=== PATIENT | female | born 1945 | race Caucasian/White ===

== ENCOUNTER 2019-10-19 14:57 | Outpatient (CLI) | payer MEDICARE, OTHER, SELFPAY ==
--- NOTE | 2019-10-19 15:11 | XRR_ITS ---
PROCEDURE INFORMATION: Exam: XR Right Knee Exam date and time: 10/19/2019 3:22 PM Age: 74 years old Clinical indication: Pain; Knee; Right; Additional info: Right knee pain TECHNIQUE: Imaging protocol: XR Right knee. Views: 1 or 2 views. COMPARISON: CR Knee 3 views, RIGHT* [id number] 07/28/2019 9:46 AM FINDINGS: Bones/joints: There has been a right knee replacement. No evidence for hardware failure. There is no evidence for acute fracture or malalignment. Soft tissues: There is a suprapatellar and infrapatellar effusion which are not significantly changed. XR/XR knee RT 1-2V [id number] IMPRESSION: There are no acute concerning abnormalities.
== END 2019-10-19 14:58 | disposition home or self-care (01) ==
LOC: RAD 15:07
PROVIDERS: Family Provider Electrodiagnostic Medicine; PCP Electrodiagnostic Medicine; Visit Provider Orthopaedic Surgery
DX: M25.561 Pain in right knee (principal)
CPT/HCPCS: 73560

== ENCOUNTER 2019-11-08 21:51 | Emergency (ER) | payer MEDICARE, OTHER, SELFPAY ==
[2019-11-08 21:56] VITALS: BP 166/93; PULSE 105; RESP 18; TEMP 36.6; O2SAT 95; BMI 21.4
[2019-11-08 22:26] LABS: Basophils % 0.1 %; Eosinophils # 0.1 10^3/uL (0.0-0.8); Eosinophils % 0.8 %; Hematocrit 40.3 % (37.0-47.0); Hemoglobin 12.7 g/dL (11.5-15.3); Lymphocytes # 0.9 10^3/uL (0.8-4.8); Lymphocytes % 11.9 %; Mean Corpuscular HGB Conc 31.5 g/dL (30.0-36.0); Mean Corpuscular Hemoglobin 31.3 pg (28.0-34.0); Mean Corpuscular Volume 99.3 fL (81-99); Mean Platelet Volume 9.2 fL (7.4-10.4); Monocytes # 0.2 10^3/uL (0.2-0.9); Monocytes % 2.3 %; Neutrophils # 6.6 10^3/uL (1.8-7.7); Neutrophils % 84.6 %; Nucleated Red Blood Cells % 0 %; Platelet Count 315 10^3/cmm (130-400); Red Blood Count 4.06 10^6/uL (4.1-5.3); Red Cell Distribution Width 12.4 % (12.1-15.1); White Blood Count 7.8 10^3/uL (4.0-10.0)
[2019-11-08 22:37] LABS: Alanine Aminotransferase 20 U/L (0-33); Alkaline Phosphatase 157 IU/L (35-105); Anion Gap 17.6 (5-19); Aspartate Amino Transferase 36 U/L (0-32); Blood Urea Nitrogen 19 mg/dL (8-23); Calcium 8.9 mg/dL (8.5-10.5); Carbon Dioxide 23 mmol/L (22-29); Chloride 98 mmol/L (98-107); Globulin 3.7 g/dL (1.3-4.6); Glucose 124 mg/dL (65-115); Lipase 140 U/L (13-60); Potassium 3.6 mmol/L (3.5-5.1); Sodium 135 mmol/L (136-145); Total Bilirubin 0.4 mg/dL (0.15-1.2); Total Protein 7.7 g/dL (6.6-8.7)
--- NOTE | 2019-11-08 23:16 | ED_ITS ---
Entered by Kath Stoner, acting as scribe for Jasmyn Zhou Nov 08, 2019 21:51 HPI - Nausea/Vomiting/Diarrhea General: Chief complaint: Nausea/Vomiting/Diarrhea Stated complaint: nausea/vomiting Time Seen by Provider: 11/08/19 23:10 Source: patient and family Mode of arrival: ambulatory History of Present Illness: HPI Narrative: 74 y/o female presents to the ED with complaint of diarrhea/abd pain since 0830 this AM. She has had nausea since noon and vomiting since 1999. She has not checked her temperature today but she reports having chills. Pt states the pain is sharp in nature. MD elicited complaint: nausea, vomiting, diarrhea and abdominal pain Pertinent past history: hernia Onset (ago): day(s) Associated abdominal pain: Yes Location of pain: Epigastric Pain consistency: constant Severity: mild Quality: sharp Associated symtoms: Reports fevers/chills; Denies altered mental status, change in vision, chest pain, diaphoresis, dizziness, dysuria, fatigue, headache(s), malaise, palpitations or syncope Review of Systems General: Reports: other (negative unless marked) Const: Denies: fever, body aches, fatigue, malaise or diaphoresis Eyes: Denies: change in vision or blurry vision ENMT: Denies: throat pain, painful swallowing, hoarseness, ear pain, ear discharge, Change in hearing or nasal discharge Card: Denies: chest pain, palpitations, irregular heart rhythm, syncope, pre- syncope, shortness of breath on exertion or shortness of breath when lying down Resp: Denies: shortness of breath, productive cough, non-productive cough, wheezing, coughing up blood or chest congestion : Denies: flank pain, painful urination, urinary frequency, urinary urgency, decreased urine ouput, urinary incontinence or blood in urine Musc: Denies: neck pain, back pain, extremity pain, extremity swelling, joint pain, joint swelling, joint warmth or joint stiffness Skin/Breast: Denies: rash, skin tenderness or yellow skin Neuro: Denies: headache, numbness in extremities, weakness in extremities, changes in sensation, lack of coordination, difficulty walking, dizziness, vertigo or confusion Endo: Denies: excessive thirst, tired all the time, cold intolerance, excessive sweating, flushing or hot flashes Gavin/Lymph: Denies: easy bruising, easy bleeding, petechiae or enlarged lymph nodes All/Imm: Denies: hives, throat swelling, tongue swelling, facial swelling or acute wheezing PFSH ED PFSH: Social History Smoking and tobacco status: never smoked Alcohol intake: current Alcohol intake frequency: holidays/special occasions only Household members: spouse Marital status: Current occupational status: employed Current occupation: [employer] Current gender identity: Female Physical Exam Const: COMMON NORMALS: no apparent distress, oriented x3, no limitations, healthy appearing and well nourished EXAM LIMITATIONS: no altered mental status GENERAL APPEARANCE: cooperative, well kempt and well developed ORIENTATION/CONSCIOUSNESS: Yes awake HENMT: COMMON NORMALS: normocephalic, head/scalp atraumatic, hearing grossly normal bilaterally, external ears normal, EAC's normal, external nose normal and moist oral mucous membranes HEAD & SCALP: normal to inspection, normocephalic and atraumatic FACE & SINUS: normal facial exam and face symmetric NOSE: external nose normal and nares normal EXTERNAL EAR: Yes external ears normal EXTERNAL AUDITORY CANAL: EAC's normal MOUTH: oral and palatal mucosa normal and tongue normal Eye: COMMON NORMALS: PERRL, EOMs intact bilaterally, conjunctivae normal and no scleral icterus GENERAL EYE: normal appearance of both eyes and normal light reflex CONJUNCTIVA: Yes conjunctivae normal SCLERA: sclerae normal CORNEA: Yes corneas normal PUPIL: Yes PERRL DIRECT OPHTHALMOSCOPY: Yes normal light reflex Neck/C-Spine: COMMON NORMALS: full ROM, no lymphadenopathy, supple, no meningeal signs and no JVD GENERAL: Yes normal visual inspection and Yes trachea midline CERVICAL SPINE: Yes cervical ROM normal Chest: COMMONS NORMALS: inspection of chest normal and palpation of chest normal Resp: COMMON NORMALS: normal respiratory effort, no retractions, no use of accessory muscles and clear to auscultation bilaterally EFFORT & INSPECTION: Yes able to speak in complete sentences AUSCULTATION: clear to auscultation bilaterally Cardio: COMMON NORMALS: no JVD, regular rate, regular rhythm, S1 normal heart sound, S2 normal heart sound, no gallops, no clicks, no murmurs and no rub JUGULAR VENOUS DISTENTION: no JVD RATE: regular rate RHYTHM: regular rhythm HEART SOUNDS: S1 normal and S2 normal : COMMON NORMALS: Yes no CVA tenderness BLADDER/KIDNEY EXAM: Yes no CVA tenderness Back/Pelvis: COMMON NORMALS: no CVA tenderness, thoracic and lumbar spine normal to inspection, no thoracic nor lumbar tenderness and thoraco-lumbar ROM normal Extremity: COMMON NORMALS: normal to inspection, full ROM, normal capillary refill, no joint enlargement, no clubbing, cyanosis or edema and no calf tenderness Neuro: COMMON NORMALS: oriented x3, CN's II-XII intact bilaterally, moves all extremities, no focal motor deficits and no sensory deficits noted MENINGEAL SIGNS: Yes no meningeal signs Psych: COMMON NORMALS: mental status grossly normal, thought process normal, cooperative, affect normal, speech normal and activity/motor behavior normal APPEARANCE: Yes well kempt SPEECH: Yes normal speech THOUGHT PROCESS: normal thought process Skin: COMMON NORMALS: no rashes or lesions noted, skin turgor normal, no jaundice, no petechiae and no mottling GENERAL SKIN EXAM: no rashes or lesions noted and turgor normal Course ED course: 0040 - Pt is refusing CT scan as she does not think it is necessary. She has agreed to stay for urinalysis results. Vital Signs: Vital signs: Vital Signs Temperature 97.8 F 11/08/19 21:56 Pulse Rate 98 11/09/19 03:18 Respiratory Rate 18 11/09/19 03:18 Blood Pressure 137/77 11/09/19 03:18 Pulse Oximetry 95 11/09/19 03:18 MDM - Nausea/Vomiting/Diarrhea MDM Narrative: Medical decision making narrative: Bethany is a nice 74-year-old female who comes in for diarrhea and vomiting. She had no significant tenderness on abdominal exam here. I recommended a CT scan due to her abnormal labs but she was adamant that she refused. She states that she is very anxious and cannot even have a CAT scan. I reviewed her with length is not an MRI if she is open on both ends of the scanner and I could give her medicine to relax her but she says despite this she refuses and wants to be discharged. I did talk her into staying for a urinalysis result which shows a contamination. She wants to go home and not start any medications at this time. She does agree to return should her symptoms change or worsen but at this time she is feeling better and wants to be discharged. The patient was warned but she was also welcome to return. Lab Data: Attestation: I reviewed the patient's lab results. Labs: Lab Results 11/08/19 11/08/19 11/09/19 Range/Units 22:18 22:18 02:21 WBC 7.8 (4.0-10.0) 10^3/ uL RBC 4.06 L (4.1-5.3) 10^6/u L Hgb 12.7 (11.5-15.3) g/dL Hct 40.3 (37.0-47.0) % MCV 99.3 H (81-99) fL MCH 31.3 (28.0-34.0) pg MCHC 31.5 (30.0-36.0) g/dL RDW 12.4 (12.1-15.1) % Plt Count 315 (130-400) 10^3/c mm MPV 9.2 (7.4-10.4) fL Neut % (Auto) 84.6 % Lymph % (Auto) 11.9 % [place] % (Auto) 2.3 % Eos % (Auto) 0.8 % Baso % (Auto) 0.1 % Neut # (Auto) 6.6 (1.8-7.7) 10^3/u L Lymph # (Auto) 0.9 (0.8-4.8) 10^3/u L [place] # (Auto) 0.2 (0.2-0.9) 10^3/u L Eos # (Auto) 0.1 (0.0-0.8) 10^3/u L Baso # (Auto) 0.0 (0.0-0.1) 10^3/u L Nucleated RBC % (a uto) 0 % Nucleated RBCs # 0.0 /100WBC Sodium 135 L (136-145) mmol/L Potassium 3.6 (3.5-5.1) mmol/L Chloride 98 (98-107) mmol/L Carbon Dioxide 23 (22-29) mmol/L Anion Gap 17.6 (5-19) BUN 19 (8-23) mg/dL Creatinine 0.9 (0.5-0.9) mg/dL Glucose 124 H (65-115) mg/dL Calcium 8.9 (8.5-10.5) mg/dL Total Bilirubin 0.4 (0.15-1.2) mg/dL AST 36 H (0-32) U/L ALT 20 (0-33) U/L Alkaline Phosphata se 157 H (35-105) IU/L Total Protein 7.7 (6.6-8.7) g/dL Albumin 4.0 (3.5-5.2) g/dL Globulin 3.7 (1.3-4.6) g/dL Lipase 140 H (13-60) U/L Urine Color Yellow (Yellow) Urine Appearance Hazy A (CLEAR) Urine pH 5 (5-7) Ur Specific Gravit y 1.020 (1.005-1.030) Urine Protein Neg (Negative) Urine Glucose (UA) Norm (Normal) Urine Ketones Negative (Negative) Urine Occult Blood Neg (Negative) Urine Nitrate Negative (Negative) Urine Bilirubin Neg (NEGATIVE) Urine Urobilinogen Norm (Negative) mg/dL Ur Leukocyte Jennifer ase Negative (Negative) Urine RBC 0-4 H (0-2) /hpf Urine WBC None (0-5) /hpf Ur Squamous Epith Cells 10-15 H (0-5) Urine Bacteria 1+ H (NONE) Discharge Plan Discharge Patient Disposition: Home, Self-Care Clinical Impression: Gastroenteritis Condition: Stable Prescriptions: New Zofran 4 mg tablet 4 mg PO DAILY PRN (Reason: nausea and vomiting) 5 Days RF: 0 No Action Breo Ellipta 200-25 mcg/dose blister with device 1 inh INHALATION DAILY RF: 0 estradiol PO DAILY RF: 0 feverfew 100 mg capsule PO DAILY RF: 0 aspirin [Adult Low Dose Aspirin] 81 mg tablet,delayed release (DR/EC) 81 mg PO DAILY RF: 0 Tirosint 75 mcg capsule 75 mcg PO DAILY RF: 0 albuterol sulfate 2.5 mg /3 mL (0.083 %) solution for nebulization 2.5 mg INHALATION Q4H PRNRF: 0 atorvastatin 20 mg tablet 10 mg PO DAILY RF: 0 omeprazole 40 mg Capsule,Delayed Release(Dr/Ec) 40 mg PO DAILY RF: 0 losartan-hydrochlorothiazide 100-25 mg Tablet 1 tab PO DAILY RF: 0 alprazolam 0.25 mg Tablet 0.25 mg PO TID PRN (Reason: Anxiety) RF: 0 Discharge Orders: Discharge Order (Routine); Ordered 11/09/19 Ordered By: Jasmyn Zhou Referrals: Jaison Guan DO [Primary Care Provider] - 1-3 days Discharge Diet: Advance as tolerated Discharge Activity: Increase activity as tolerated Activity Restrictions/Additional Instructions: Please return to the ER immediately for any of the signs or symptoms listed on your discharge instruction sheets, worsening/changing of your symptoms, you are not getting better as quickly as expected, or for ANY other cause or concerns. You have declined a CT scan to evaluate for your abnormal laboratory values. If you change your mind, your symptoms change or worsen you are more than welcome to return to the ER for recheck. Be certain to follow-up with Dr. Guan for recheck of your abnormal labs. Discharge Date/Time: 11/09/19 03:22 Coding Level of Care Code ED [employer] Lead for Chg Fwd Exam Comprehensive The documentation recorded by the lindaibeHerbie Ashley, accurately reflects the service I personally performed and the decisions made by , Jasmyn Zhou Nov 08, 2019 21:51
[2019-11-08] MEDS: ondansetron 2 mg/ML SDV 2 mL 4 MG IVP (23:19)
[2019-11-09] MEDS: sodium chloride 0.9% 1,000 ML 999 ML IV (01:12)
[2019-11-09 01:15] VITALS: BP 139/73; PULSE 80; RESP 16; O2SAT 96
[2019-11-09 02:48] LABS: Add Urine Culture? No; Bacteria Urine 1+; Bilirubin Urine Neg (NEGATIVE); Blood Urine Neg (Negative); Glucose Urine UA Norm (Normal); Ketones Urine Negative (Negative); Leukocyte Esterase Urine Negative (Negative); Nitrate Urine Negative (Negative); Protein Urine Neg (Negative); RBC Urine 0-4 /hpf (0-2); Urine Appearance Hazy (CLEAR); Urine Color Yellow (Yellow); Urobilinogen Urine Norm (Negative); pH Urine 5 (5-7)
[2019-11-09 03:18] VITALS: BP 137/77; PULSE 98; RESP 18; O2SAT 95
== END 2019-11-09 03:22 | disposition home or self-care (01) ==
PROVIDERS: Emergency Provider Emergency Medicine; Family Provider Electrodiagnostic Medicine; PCP Electrodiagnostic Medicine
DX: K52.9 Noninfective gastroenteritis and colitis, unspecified (principal)
CPT/HCPCS: 36415; 80053; 81001; 83690; 85025; 96361; 96374; 96375; 99283; J2405; J7030

== ENCOUNTER 2021-01-21 10:23 | Outpatient (CLI) | payer MEDICARE, OTHER, SELFPAY ==
--- NOTE | 2021-01-21 10:26 | MM_ITS ---
WS: [id number] BILATERAL SCREENING DIGITAL MAMMOGRAM WITH CAD HISTORY: SCREENING COMPARISON: 06/14/2012, 09/30/2010 and 10/08/2010 Bilateral CC and MLO views submitted. Computer aided detection analyzed. Breast composition: There are scattered areas of fibroglandular density. No suspicious masses, microc alcifications or architectural distortion. Asymmetries and calcifications are stable. MM/[place] [id number] IMPRESSION: BI-RADS: 2-Benign FOLLOW UP: 1 Year Follow-up
== END 2021-01-21 10:24 | disposition home or self-care (01) ==
LOC: RADSHAW 10:25
PROVIDERS: PCP Electrodiagnostic Medicine; Visit Provider Electrodiagnostic Medicine
DX: Z12.31 Encounter for screening mammogram for malignant neoplasm of breast (principal)
CPT/HCPCS: 77067

== ENCOUNTER 2021-01-28 14:46 | Outpatient (CLI) | payer MEDICARE, OTHER, SELFPAY ==
--- NOTE | 2021-01-28 15:00 | US_ITS ---
WS: [id number] ULTRASOUND SOFT TISSUES LEFT groin HISTORY: R19.09 - Other intra-abdominal and pelvic swelling, mass ... COMPARISON: Prior CT 07/25/2014. TECHNIQUE: 2-D and color Doppler imaging is submitted. There is an elongated tubular structure extending along the LEFT groin through the inguinal region. D iameter is 1.0 cm. There is mild central increased vascularity. No ischemic changes and there is no i ncrease fluid. No peristalsis was identified. This does not have the typical configuration of a lymph node due to its echogenicity and size. This could represent a nondilated loop of small bowel. US/US soft tissue/extremity [id number] IMPRESSION: 1. Elongated tubular structure at the LEFT groin. No edema or peristalsis. Rec ommend follow-up CT evaluation to exclude LEFT inguinal hernia. At this time th ere is no obstruction or ischemia. 2. No adenopathy.
== END 2021-01-28 14:47 | disposition home or self-care (01) ==
LOC: RAD 14:53
PROVIDERS: PCP Electrodiagnostic Medicine; Visit Provider Obstetrics & Gynecology
DX: R19.09 Other intra-abdominal and pelvic swelling, mass and lump (principal)
CPT/HCPCS: 76882

== ENCOUNTER → 2022-05-12 15:49 | Outpatient (BNVA) | payer MEDICARE, OTHER, SELFPAY | PROVIDERS: PCP Electrodiagnostic Medicine; Visit Provider Internal Medicine | DX: I25.10 Atherosclerotic heart disease of native coronary artery without angina pectoris (principal); I73.9 Peripheral vascular disease, unspecified; E78.5 Hyperlipidemia, unspecified; I10 Essential (primary) hypertension; R06.02 Shortness of breath; Z87.891 Personal history of nicotine dependence | CPT/HCPCS: 99214 ==

== ENCOUNTER 2022-10-16 12:00 | Outpatient (CLI) | payer MEDICARE, OTHER, SELFPAY ==
--- NOTE | 2022-10-16 12:09 | USCV_ITS ---
Bethany Hinton Age: 77 Gender: F : 1945 Exam Date: 10/16/2022 12:29 Ordering Phys: Jaison Guan DO Technologist: Juan Woodard Exam Location: [facility] [place]_ Indication: left leg swelling PROCEDURES: Venous duplex imaging was performed in only the left lower extremity. The following venous structures were evaluated: common femoral vein, profunda vein, proximal portion of the greater saphenous vein, superficial femoral vein, and the popliteal vein. In addition, the posterior tibial and peroneal trunk were evaluated. Serial compression, augmentation maneuvers, and spectral Doppler flow evaluation were performed. FINDINGS: Normal 2-D Doppler and augmentation and compressibility throughout the lower extremity venous structures. Additional imaging through the proximal calf veins also reveals no thrombus. Limited evaluation of the greater saphenous vein is patent with no thrombus.. CONCLUSIONS No evidence of left lower extremity DVT. Sonny Billingsley MD (Electronically Signed) Final Date: 16 October 2022 17:16 S
== END 2022-10-16 12:01 | disposition home or self-care (01) ==
LOC: RAD 12:03
PROVIDERS: PCP Electrodiagnostic Medicine; Visit Provider Electrodiagnostic Medicine
DX: M79.89 Other specified soft tissue disorders (principal)
CPT/HCPCS: 93971

== ENCOUNTER → 2022-11-26 12:50 | Outpatient (BNVA) | payer MEDICARE, OTHER, SELFPAY | PROVIDERS: PCP Electrodiagnostic Medicine; Visit Provider Internal Medicine Cardiovascular Disease | DX: I25.10 Atherosclerotic heart disease of native coronary artery without angina pectoris (principal); I10 Essential (primary) hypertension; E78.5 Hyperlipidemia, unspecified; I73.9 Peripheral vascular disease, unspecified; J44.9 Chronic obstructive pulmonary disease, unspecified; Z95.820 Peripheral vascular angioplasty status with implants and grafts; R60.0 Localized edema; Z87.891 Personal history of nicotine dependence; I25.2 Old myocardial infarction; Z79.82 Long term (current) use of aspirin | CPT/HCPCS: 99213 ==

== ENCOUNTER 2022-11-27 11:18 | Outpatient (CLI) | payer MEDICARE, OTHER, SELFPAY ==
--- NOTE | 2022-11-27 | USCV_ITS ---
Bethany Hinton Age: 77 Gender: F : 1945 Exam Date: 11/27/2022 12:11 Ordering Phys: Jeremy Pierre M.D ([email or web address]) Technologist: ZOILA [place] [facility] [place]ication: ACUTE HEART FAILURE BP: 160 / 60 HR: 77 Rhythm: Sinus Technical Quality: Adequate MEASUREMENTS (Male / Female) Normal Values 2D ECHO LVOT Diameter 2.0 cm LV Ejection Fraction MOD 2C 58.3 % LV Ejection Fraction 2C AL 58.6 % LA Diameter 2.0 cm LA Width 2.7 cm LA Height 3.3 cm RA Width 2.0 cm RA Height 3.8 cm Aorta at Sinotubular Diameter 2.0 cm IVC Diameter 1.1 cm M-MODE Aortic Annulus Diameter 2.4 cm LA Ao Ratio MM 0.6 DOPPLER AV Peak Velocity 109.0 cm/s LVOT Peak Velocity 81.3 cm/s AV Area Cont Eq vti 2.7 cm squared AV Area Cont Eq pk 2.3 cm squared MV Peak Velocity 97.0 cm/s MV Area PHT 3.0 cm squared Mitral E to A Ratio 0.8 MV E' Velocity 35.5 cm/s Mitral E to MV E' Ratio 5.1 Mitral E to LV E' Lateral Ratio 4.8 Mitral E to LV E' Septal Ratio 5.3 TR Peak Velocity 263.0 cm/s TR Peak Gradient 27.7 mmHg TV Peak E Velocity 45.0 cm/s Right Atrial Pressure 3.0 mmHg Pulmonary Artery Systolic Pressu 30.7 mmHg FINDINGS Left Ventricle Normal left ventricular size, systolic function and wall thickness, with no regional wall motion abnormalities. Grade I/IV diastolic dysfunction (abnormal relaxation filling pattern), normal to mildly elevated filling pressures. Left ventricular ejection fraction is estimated at 60 %. Right Ventricle Normal right ventricular size and systolic function. Normal right ventricular systolic pressure. Right Atrium The right atrium is normal in size. Left Atrium The left atrium is normal in size. Mitral Valve Structurally normal mitral valve. Trace mitral valve regurgitation. Aortic Valve Structurally normal aortic valve without significant sclerosis or stenosis. There is no aortic regurgitation. Tricuspid Valve Structurally normal tricuspid valve. Trace tricuspid valve regurgitation. Pulmonic Valve Pulmonic valve not well visualized. Pericardium Normal pericardium without effusion. Aorta Normal ascending aorta dimension. IVC The inferior vena cava appears normal. CONCLUSIONS Normal left ventricular size, systolic function and wall thickness, with no regional wall motion abnormalities. Grade I/IV diastolic dysfunction (abnormal relaxation filling pattern), normal to mildly elevated filling pressures. Left ventricular ejection fraction is estimated at 60 %. Structurally normal mitral valve. Trace mitral valve regurgitation. There are no prior echocardiogram studies to compare. Dr. Cole Grace MD (Electronically Signed) Final Date: 27 November 2022 18:42 S
== END 2022-11-27 11:19 | disposition home or self-care (01) ==
PROVIDERS: PCP Electrodiagnostic Medicine; Visit Provider Internal Medicine
DX: I50.9 Heart failure, unspecified (principal); I34.0 Nonrheumatic mitral (valve) insufficiency
CPT/HCPCS: 93306

== ENCOUNTER → 2023-01-12 13:14 | Outpatient (BNVA) | payer MEDICARE, OTHER, SELFPAY | PROVIDERS: PCP Electrodiagnostic Medicine; Visit Provider Internal Medicine Cardiovascular Disease | DX: I10 Essential (primary) hypertension (principal); E78.5 Hyperlipidemia, unspecified; I73.9 Peripheral vascular disease, unspecified; J44.9 Chronic obstructive pulmonary disease, unspecified; I25.10 Atherosclerotic heart disease of native coronary artery without angina pectoris; Z95.820 Peripheral vascular angioplasty status with implants and grafts; I25.2 Old myocardial infarction; Z87.891 Personal history of nicotine dependence; Z79.82 Long term (current) use of aspirin | CPT/HCPCS: 99213 ==

== ENCOUNTER → 2023-04-13 14:38 | Outpatient (BNVA) | payer MEDICARE, OTHER, SELFPAY | PROVIDERS: PCP Electrodiagnostic Medicine; Visit Provider Dermatology | DX: L40.0 Psoriasis vulgaris (principal); L57.0 Actinic keratosis; S60.031A Contusion of right middle finger without damage to nail, initial encounter; X58.XXXA Exposure to other specified factors, initial encounter; L81.4 Other melanin hyperpigmentation; L30.4 Erythema intertrigo | CPT/HCPCS: 17000; 99214 ==

== ENCOUNTER → 2023-07-02 11:40 | Outpatient (BNVA) | payer MEDICARE, OTHER, SELFPAY | PROVIDERS: PCP Electrodiagnostic Medicine; Visit Provider Internal Medicine Cardiovascular Disease | DX: R60.0 Localized edema (principal); I10 Essential (primary) hypertension; E78.5 Hyperlipidemia, unspecified; I73.9 Peripheral vascular disease, unspecified; J44.9 Chronic obstructive pulmonary disease, unspecified; Z95.820 Peripheral vascular angioplasty status with implants and grafts; I25.10 Atherosclerotic heart disease of native coronary artery without angina pectoris; I25.2 Old myocardial infarction; Z87.891 Personal history of nicotine dependence | CPT/HCPCS: 99213 ==

== ENCOUNTER → 2024-01-14 11:46 | Outpatient (BNVA) | payer MEDICARE, OTHER, SELFPAY | PROVIDERS: PCP Electrodiagnostic Medicine; Visit Provider Internal Medicine Cardiovascular Disease | DX: I25.10 Atherosclerotic heart disease of native coronary artery without angina pectoris (principal); Z95.820 Peripheral vascular angioplasty status with implants and grafts; I73.9 Peripheral vascular disease, unspecified; E78.5 Hyperlipidemia, unspecified; I10 Essential (primary) hypertension; J44.9 Chronic obstructive pulmonary disease, unspecified; I25.2 Old myocardial infarction; Z87.891 Personal history of nicotine dependence | CPT/HCPCS: 99213 ==

== ENCOUNTER → 2024-04-18 10:14 | Outpatient (BNVA) | payer MEDICARE, OTHER, SELFPAY | PROVIDERS: PCP Electrodiagnostic Medicine; Visit Provider Nurse Practitioner Family | DX: L21.8 Other seborrheic dermatitis (principal); L40.0 Psoriasis vulgaris; L60.1 Onycholysis; D18.01 Hemangioma of skin and subcutaneous tissue; L81.4 Other melanin hyperpigmentation | CPT/HCPCS: 99214 ==

== ENCOUNTER 2024-07-04 07:45 | Outpatient (CLI) | payer MEDICARE, OTHER, SELFPAY ==
--- NOTE | 2024-07-04 07:50 | CT_ITS ---
WS: [id number] LDCT LUNG CANCER SCREENING HISTORY: HISTORY OF [place] USE TECHNIQUE: Axial imaging performed from the apices to 1 cm below the costophrenic angles. Coronal and sagittal reformats are submitted with axial MIP series. All CT scans at [facility] use at least one of these dose optimization techniques: automated exposure control; mA and/or kV adjustment per patient size (includes targeted exams where dose is matched to clinical indication); or iterativ e reconstruction. DLP: 48.40 mGy.cm DIvol: Mean CTDIvol: 1.00 (mGy) COMPARISON: 10/03/2015 Diagnostic quality: Satisfactory Lungs: Marked pulmonary hyperexpansion. Biapical pleural thickening and fibrosis. Bilateral pleural t hickening and scarring. There are a few subpleural nodules and pleural tags bilaterally. Scattered gr anulomata. No new mass. Heart: Normal size heart with no pericardial effusion.. Other findings: Moderate atherosclerosis aorta. Normal size pulmonary artery. Bilateral hilar calcifi cations. Lymph nodes would be difficult to exclude due to the lack of contrast. Hepatic and splenic g ranulomata. No adrenal mass. Increase in thoracic kyphosis with spondylosis. CT/CT lung screening [id number] IMPRESSION: LUNG-RADS: 2-Benign Appearance or Behavior FOLLOW UP: 12 Month: Continue annual screening with LDCT OTHER FINDINGS (S MODIFIER): None.
== END 2024-07-04 07:46 | disposition home or self-care (01) ==
LOC: RAD 07:45
PROVIDERS: PCP Electrodiagnostic Medicine; Visit Provider Electrodiagnostic Medicine
DX: Z12.2 Encounter for screening for malignant neoplasm of respiratory organs (principal); Z87.891 Personal history of nicotine dependence; I27.20 Pulmonary hypertension, unspecified; J84.10 Pulmonary fibrosis, unspecified; I70.0 Atherosclerosis of aorta; D73.89 Other diseases of spleen; K75.3 Granulomatous hepatitis, not elsewhere classified; M40.204 Unspecified kyphosis, thoracic region
CPT/HCPCS: 71271

== ENCOUNTER 2024-07-06 11:01 | Outpatient (CLI) | payer MEDICARE, OTHER, SELFPAY ==
[2024-07-06 11:20] VITALS: PULSE 73; RESP 18; O2SAT 97
[2024-07-06] MEDS: albuterol 2.5 mg/3 mL Neb INHALATION (11:20)
[2024-07-06 11:24] VITALS: PULSE 78
== END 2024-07-06 11:02 | disposition home or self-care (01) ==
PROVIDERS: PCP Electrodiagnostic Medicine; Visit Provider Electrodiagnostic Medicine
DX: J44.9 Chronic obstructive pulmonary disease, unspecified (principal); R94.2 Abnormal results of pulmonary function studies
CPT/HCPCS: 94060; 94729

== ENCOUNTER → 2024-07-18 09:45 | Outpatient (BNVA) | payer MEDICARE, OTHER, SELFPAY | PROVIDERS: PCP Electrodiagnostic Medicine; Visit Provider Nurse Practitioner Family | DX: I25.10 Atherosclerotic heart disease of native coronary artery without angina pectoris (principal); I73.9 Peripheral vascular disease, unspecified; I10 Essential (primary) hypertension; E78.5 Hyperlipidemia, unspecified; J44.9 Chronic obstructive pulmonary disease, unspecified; Z87.891 Personal history of nicotine dependence | CPT/HCPCS: 99214 ==

== ENCOUNTER → 2024-10-17 13:37 | Outpatient (BNVA) | payer MEDICARE, OTHER, SELFPAY | PROVIDERS: PCP Electrodiagnostic Medicine; Visit Provider Nurse Practitioner Family | DX: L21.8 Other seborrheic dermatitis (principal); L60.1 Onycholysis; L40.0 Psoriasis vulgaris; D18.01 Hemangioma of skin and subcutaneous tissue; L81.4 Other melanin hyperpigmentation; L91.8 Other hypertrophic disorders of the skin; L82.0 Inflamed seborrheic keratosis; L53.8 Other specified erythematous conditions; L29.89 Other pruritus | CPT/HCPCS: 17110; 99214 ==

== ENCOUNTER 2024-11-26 22:57 | Emergency (ER) | payer MEDICARE, OTHER, SELFPAY ==
[2024-11-26 23:01] VITALS: BP 159/75; PULSE 90; RESP 16; TEMP 36.7; O2SAT 96; BMI 23.1
[2024-11-26 23:09] VITALS: PULSE 77; RESP 16; O2SAT 96
--- NOTE | 2024-11-26 23:23 | XRR_ITS ---
PROCEDURE INFORMATION: Exam: XR Right Hip Exam date and time: 11/26/2024 11:34 PM Age: 79 years old Clinical indication: Right hip; RT hip pain after twisting injury TECHNIQUE: Imaging protocol: Radiologic exam of the right hip. Views: 1 view hip with pelvis when performed. COMPARISON: No relevant prior studies available. FINDINGS: Bones/joints: No identified fracture or dislocation. 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 Sacral arcuate lines intact. Mild degenerative change of the SI joints and pubic symphysis without diastasis. Soft tissues: See Bones/joints finding. XR/XR hip RT 2-3V wo/w pel* [id number] IMPRESSION: No identified fracture or dislocation.
--- NOTE | 2024-11-26 23:42 | W.ED.EXTPRO ---
HPI - Extremity Problem General: Chief complaint: Extremity Injury, Lower Stated complaint: Twisted R hip really bad Time Seen by Provider: 11/26/24 23:12 History of Present Illness: 79-year-old female who planted and turned on her hip at home earlier in the evening. She felt a pop. She had instant pain. Now she has significant pain putting any weight on the hip, or twisting the hip. She has no prior history of hip surgery or problems. No fever. No other complaints. Related Data Home Medications ?Medication ?Instructions ?Recorded ?Confirmed albuterol sulfate 2.5 mg/3 mL 2.5 mg inhalation Q4H PRN 10/24/19 07/18/24 (0.083 %) solution for nebulization aspirin 81 mg tablet,delayed 81 mg PO DAILY 10/24/19 07/18/24 release (Adult Low Dose Aspirin) feverfew 100 mg capsule mg PO DAILY 10/24/19 07/18/24 losartan 100 1 tab PO DAILY 11/08/19 07/18/24 mg-hydrochlorothiazide 25 mg tablet omeprazole 40 mg capsule,delayed 40 mg PO DAILY 11/08/19 07/18/24 release atorvastatin 20 mg tablet 20 mg PO DAILY 01/23/21 07/18/24 cholecalciferol (vitamin D3) 1,250 50,000 unit PO .twice weekly 01/23/21 07/18/24 mcg (50,000 unit) capsule ketoconazole 2 % shampoo 1 applic topical .2 x weekly PRN 11/24/22 07/18/24 ketoconazole 2 % topical cream 1 applic topical BID PRN 11/24/22 07/18/24 melatonin 3 mg tablet (Melatin) 3 mg PO DAILY PRN sleep 11/24/22 07/18/24 Hot Flash PO TID 02/04/23 07/18/24 naproxen sodium 220 mg tablet 220 mg PO Q12H PRN 07/02/23 07/18/24 (Aleve) amoxicillin 875 mg-potassium 1 tab PO BID 01/14/24 07/18/24 clavulanate 125 mg tablet levothyroxine 75 mcg capsule 50 mcg PO DAILY 01/14/24 07/18/24 (Tirosint) budesonide 160 mcg-glycopyr 9 2 inh inhalation BID 07/18/24 07/18/24 mcg-formot 4.8 mcg/actuation HFA inhaler (Breztri Aerosphere) Previous Rx's ?Medication ?Instructions ?Recorded oxybutynin chloride 10 mg 10 mg PO DAILY #30 tabs 03/16/23 tablet,extended release 24 hr hydrocodone 5 mg-acetaminophen 325 1 tab PO Q8H PRN pain #7 tabs 11/27/24 mg tablet Allergies Allergy/AdvReac Type Severity Reaction Status Date / Time acetaminophen (From Percocet) Allergy Severe ALGY-Redness Verified 07/18/24 09:54 of Skin oxycodone (From Percocet) Allergy Severe ALGY-Redness Verified 07/18/24 09:54 of Skin amlodipine Allergy Unknown Unknown Verified 07/18/24 09:54 benazepril Allergy Unknown Unknown Verified 07/18/24 09:54 loratadine Allergy Unknown Unknown Verified 07/18/24 09:54 prednisone Allergy Unknown Unknown Verified 07/18/24 09:54 loracarbef (From Lorabid) Allergy Unknown Verified 07/18/24 09:54 PFSH ED PFSH: Medical History Cataract Lower extremity edema GERD (gastroesophageal reflux disease) Vulvovaginal candidiasis Tobacco abuse Dyslipidemia Hypothyroidism PAD (peripheral artery disease) COPD (chronic obstructive pulmonary disease) Myocardial infarction ASHD (arteriosclerotic heart disease) Surgical History S/P hysterectomy S/P bladder repair S/P cholecystectomy S/P hernia repair Status post tubal ligation S/P lumpectomy of breast S/P knee replacement RIGHT S/P angioplasty with stent Family History Father CAD (coronary artery disease) Myocardial infarction Grandfather CAD (coronary artery disease) PATERNAL Myocardial infarction Grandmother CAD (coronary artery disease) PATERNAL Myocardial infarction Cancer Maternal--gallbladder cancer Brother Diabetes Denies family history of Ovarian cyst Hyperlipidemia Chronic kidney disease (CKD) Anesthesia complication Hypertension Thyroid disease Social History Smoking and tobacco/nicotine status: former use of tobacco/nicotine Alcohol intake: current Alcohol intake frequency: holidays/special occasions only Substance/Drug Use: never Household members: spouse Marital status: Current occupational status: employed Current occupation: OPERATIONAL TRAINER Current gender identity: Female Physical Exam Const: COMMON NORMALS: no acute distress GENERAL APPEARANCE: cooperative; not ill appearing and not frail appearing HENMT: COMMON NORMALS: normocephalic, atraumatic and Normal external nose present HEAD & SCALP: normocephalic and atraumatic FACE & SINUS: normal facial exam and face symmetric NOSE: Normal external nose present Eye: COMMON NORMALS: Equal, round and reactive pupils present and EOMs intact bilaterally PUPIL: Yes Equal, round and reactive pupils present Neck/C-Spine: GENERAL: Yes trachea midline Chest: CHEST: Yes Symmetrical chest wall rise Resp: COMMON NORMALS: normal respiratory effort, No retractions, No use of accessory muscles and clear to auscultation bilaterally AUSCULTATION: clear to auscultation bilaterally Cardio: COMMON NORMALS: regular rate and regular rhythm RATE: regular rate RHYTHM: regular rhythm Extremity: COMMON NORMALS: no pedal edema NARRATIVE EXTREMITY EXAM: Exam of the right lower extremity reveals trochanteric hip tenderness on the right. There is minimal groin tenderness. Minimal posterior tenderness. No lumbar spine tenderness. There is no deformity of the hip or lower extremity. Logroll test is negative. There is pain with more significant range of motion pulses and sensation are intact distally. Neuro: GAYLA COMA SCALE: document GCS findings [place] coma scale eye opening: Spontaneous Gayla coma scale verbal response: Orientated Gayla coma scale motor response: Obey commands [place] coma scale total score: 15 SENSORY EXAM: Yes extremities (intact) Psych: COMMON NORMALS: speech normal SPEECH: Yes normal speech Course Vital Signs: Vital signs: Vital Signs Temperature 98.0 F 11/26/24 23:01 Pulse Rate 74 11/27/24 01:21 Respiratory Rate 16 11/26/24 23:09 Blood Pressure 149/93 11/27/24 01:21 Pulse Oximetry 96 11/27/24 01:21 Oxygen Delivery Me thod Room Air 11/26/24 23:09 MDM - Extremity (Nontraumatic) Medical Decision Making X-rays reveal no fracture or dislocation. She will be allowed discharge home Lab Data Radiology Impressions Hip/Pelvis X-Ray 11/26/24 23:23 IMPRESSION: No identified fracture or dislocation. All radiology interpretation(s) finalized by discharge Discharge Plan Discharge Patient Disposition: Home Clinical Impression: Sprain of right hip Condition: Stable Prescriptions: New hydrocodone-acetaminophen 5-325 mg tablet 1 tab PO Q8H PRN (Reason: pain) Qty: 7 0RF No Action cholecalciferol (vitamin D3) 1,250 mcg (50,000 unit) capsule 50,000 unit PO .twice weekly feverfew 100 mg capsule PO DAILY aspirin [Adult Low Dose Aspirin] 81 mg tablet,delayed release (DR/EC) 81 mg PO DAILY albuterol sulfate 2.5 mg /3 mL (0.083 %) solution for nebulization 2.5 mg INHALATION Q4H PRN atorvastatin 20 mg tablet 20 mg PO DAILY Tirosint 75 mcg capsule 50 mcg PO DAILY melatonin [Melatin] 3 mg tablet 3 mg PO DAILY PRN (Reason: sleep) ketoconazole 2 % shampoo 1 applic topical .2 x weekly PRN Rx Instructions: Lather into scalp 2 times weekly. Allow to sit on scalp for 5 minutes before rinsing. ketoconazole 2 % cream 1 applic topical BID PRN Rx Instructions: Apply twice daily to backside x 4 wks then prn. Apply to face daily prn for itching/scaling Hot Flash PO TID naproxen sodium [Aleve] 220 mg tablet 220 mg PO Q12H PRN amoxicillin-pot clavulanate 875-125 mg tablet 1 tab PO BID Breztri Aerosphere 160-9-4.8 mcg/actuation HFA aerosol inhaler 2 inh inhalation BID oxybutynin chloride 10 mg tablet extended release 24hr 10 mg PO DAILY Qty: 30 6RF omeprazole 40 mg Capsule,Delayed Release(Dr/Ec) 40 mg PO DAILY losartan-hydrochlorothiazide 100-25 mg Tablet 1 tab PO DAILY Discharge Orders: Discharge ED (Routine); Ordered 11/27/24 Ordered By: Khoi Laughlin Referrals: Jaison Guan DO [Primary Care Provider] - 1-3 days Patient Instructions: Hip Sprain (ED), Opioid Safety, Pain Management Activity Restrictions/Additional Instructions: Use a cane for weightbearing as tolerated. As your pain improves, you may decrease use of the cane. Ice can help. Pain medication sparingly. Return for any problems. Print Language: Russian Coding Level of Care Code ED Truck Chauffeur for Darryl Mahoney
[2024-11-27] MEDS: ketorolac 30 mg/mL INJ IM (00:15)
[2024-11-27 01:21] VITALS: BP 149/93; PULSE 74; O2SAT 96
== END 2024-11-27 01:22 | disposition home or self-care (01) ==
PROVIDERS: Emergency Provider Emergency Medicine; PCP Electrodiagnostic Medicine
DX: S73.101A Unspecified sprain of right hip, initial encounter (principal); Z79.82 Long term (current) use of aspirin; Z87.891 Personal history of nicotine dependence; J44.9 Chronic obstructive pulmonary disease, unspecified; E78.5 Hyperlipidemia, unspecified; X58.XXXA Exposure to other specified factors, initial encounter
CPT/HCPCS: 73502; 96372; 99284; J1885

== ENCOUNTER → 2025-01-24 14:38 | Outpatient (BNVA) | payer MEDICARE, OTHER, SELFPAY | PROVIDERS: PCP Electrodiagnostic Medicine; Visit Provider Internal Medicine Cardiovascular Disease | DX: I10 Essential (primary) hypertension (principal); R60.9 Edema, unspecified; Z79.82 Long term (current) use of aspirin; Z95.5 Presence of coronary angioplasty implant and graft; Z87.891 Personal history of nicotine dependence; I25.2 Old myocardial infarction | CPT/HCPCS: 99204 ==

== ENCOUNTER 2025-02-13 09:25 | Emergency (ER) | payer MEDICARE, OTHER, SELFPAY ==
[2025-02-13] VITALS (9 sets, daily range): BP systolic 150–178; BP diastolic 67–96; PULSE 92–115; RESP 16–26; TEMP 36.7; O2SAT 88–95; BMI 24.0
--- NOTE | 2025-02-13 10:00 | ECG_ITS ---
[facility] Test Date: 2025-02-13 Pat Name: Bethany Hinton Department: Room: Gender: Female Chief Deputy Clerk/Bailiff: : 1945 Requested By: Adair Wynn Order Number: [id number] Reading MD: GERMÁN LESLIE Measurements Intervals [place] Rate: 109 P: 71 [place]: 134 QRS: 61 QRSD: 82 T: 52 QT: 334 QTc: 450 Interpretive Statements SINUS TACHYCARDIA LOW QRS VOLTAGE IN PRECORDIAL LEADS [QRS DEFLECTION < 1.0 mV IN CHEST LEADS] MODERATE ST DEPRESSION [0.05+ mV ST DEPRESSION] INTERPRETATION BASED ON A DEFAULT AGE OF 40 YEARS Compared to ECG 06/18/2019 18:57:43 Low QRS voltage now present ST (T wave) deviation now present Sinus rhythm no longer present Electronically Signed On 02-13-2025 19:03:21 CDT by GERMÁN LESLIE [id number] [id number]
--- NOTE | 2025-02-13 10:00 | XRR_ITS ---
PROCEDURE INFORMATION: Exam: XR Chest Exam date and time: 02/13/2025 10:04 AM Age: 79 years old Clinical indication: Shortness of breath; Prior surgery; Surgery date: 6+ months; Surgery type: Cardiac stents; Additional info: Dyspnea/cough TECHNIQUE: Imaging protocol: Radiologic exam of the chest. Views: 1 view. COMPARISON: CT lung screening [id number] 07/04/2024 7:58 AM FINDINGS: Lungs: Mild hyperinflation with flattening of the diaphragms. No focal consolidation. Scattered subcentimeter calcified granulomas bilaterally. Pleural spaces: Unremarkable. No pleural effusion. No pneumothorax. Heart/Mediastinum: The cardiomediastinal silhouette is stable. Calcifications of the aortic arch. Bones/joints: Unremarkable. XR/XR chest 1V portable [id number] IMPRESSION: No acute cardiopulmonary abnormality.
[2025-02-13 10:15] LABS: Basophils # 0.1 10^3/uL (0.0-0.1); Basophils % 0.9 %; Eosinophils # 0.4 10^3/uL (0.0-0.8); Eosinophils % 6.5 %; Hematocrit 33.5 % (36-47); Lymphocytes # 1.5 10^3/uL (0.8-4.8); Lymphocytes % 22.1 %; Mean Corpuscular HGB Conc 31.3 g/dL (30-55); Mean Corpuscular Hemoglobin 28.6 pg (27-33); Mean Corpuscular Volume 91.3 fl (85-98); Mean Platelet Volume 9.5 fL (7.4-10.4); Monocytes # 0.4 10^3/uL (0.2-0.9); Monocytes % 5.9 %; Neutrophils # 4.37 10^3/uL (1.8-7.7); Neutrophils % 64.5 %; Nucleated Red Blood Cells % 0 %; Platelet Count 334 10^3/cmm (157-399); Red Blood Count 3.67 10^6/uL (3.85-5.65); White Blood Count 6.78 10^3/uL (3.29-11.43)
[2025-02-13] MEDS: ipratropium-albuterol 3 mL Neb INHALATION (10:20)
[2025-02-13] MEDS: albuterol 2.5 mg/3 mL Neb INHALATION (10:20)
[2025-02-13] MEDS: methylPREDNISolone sod succ 125 mg/2 mL INJ IVP (10:24)
[2025-02-13 10:29] LABS: ABG PH Result 7.46 (7.35-7.45); Alveolar-Arterial Oxygen Gradi 3.2 mmHg (5-10); Arterial Blood Gas Hematocrit 32.7 % (37-47); Base Excess ABG 5.6 mmol/L (-2.0-2.0); Blood Gas Allen Test Pos; Blood Gas Operator Identificat MONRO; Blood Gas Sample Site Radial, right; Blood Gas Sample Type Arterial; Carboxyhemoglobin 0.8 %THgb (0.4-20.1); HCO3 ABG 30.2 mmol/L (22-26); HGB O2 Sat 94.2 % (95-100); Ionized Calcium Level - ABG 1.2 mmol/L (1.1-1.4); Methemoglobin 0.4 % (0.4-1.5); Oxygen Device ROOM AIR; Oxygen Saturation ABG 95.4; PO2 ABG 72.3 mmHg (80.0-100.0); PO2 FiO2 Ratio Arterial Blood 344; Potassium Level - ABG 3.6 mmol/L (3.5-5.0); Total Hemoglobin 10.7 g/dL (12-16)
[2025-02-13 10:44] LABS: Alanine Aminotransferase 13 U/L (0-33); Albumin Level 3.7 g/dL (3.5-5.2); Alkaline Phosphatase 131 U/L (35-105); Blood Urea Nitrogen 18 mg/dL (8-23); Carbon Dioxide 27 mmol/L (22-29); Chloride 100 mmol/L (98-107); Globulin 3.3 g/dL (1.3-4.6); Glucose 97 mg/dL (65-115); Osmolality Calculated 294 mOsm/kg (285-295); Sodium 141 mmol/L (136-145); Total Bilirubin 0.3 mg/dL (0.15-1.2); Troponin(5th) Baseline 32 ng/L (0-10)
[2025-02-13 10:51] LABS: Anion Gap 18.1 (5-19); Aspartate Amino Transferase 21 U/L (0-32); Potassium 4.1 mmol/L (3.5-5.1)
--- NOTE | 2025-02-13 11:01 | PC.NURSE ---
Addendum entered by Camilla Clifton RN 02/13/25 11:32: removed NC at this time - on RA now Original Note: pt placed on 1.5 L NC.
--- NOTE | 2025-02-13 11:03 | ED_ITS ---
HPI - SOB/Dyspnea 2 General: Chief Complaint: Shortness of Breath/Dyspnea Stated Complaint: sob Time Seen by Provider: 02/13/25 09:58 History of Present Illness: HPI Narrative: 79-year-old female presents emergency ro om with complaint of shortness of breath. Patient has a history of COPD. She has multiple medications that she has been on for chronic management in the past that are listed as allergies so has been difficult to manage. She does use albuterol. She just feels like it has not been helping as much she has not had any orthopnea no productive cough. No hematemesis. She has no history of PEs. No swelling of lower extremities. Associated symptoms: Reports chest congestion; Deny abdominal pain, chest pain or fever(s) Related Data Home Medications ?Medication ?Instructions ?Recorded ?Confirmed albuterol sulfate 2.5 mg/3 mL 2.5 mg inhalation Q4H DE N copd 10/24/19 02/13/25 (0.083 %) solution for nebulization aspirin 81 mg tablet,delayed 81 mg PO DAILY 10/24/19 0 02/13/25 release (Adult Low Dose Aspirin) feverfew 100 mg capsule 100 mg PO DAILY PRN Fever Or Pain 10/24/19 02/13/25 losartan 100 1 tab PO DAILY 11/08/1901/20 mg-hydrochlorothiazide 25 mg tablet omeprazole 40 mg capsule,delayed 40 mg PO DAILY 02/13/25 release atorvastatin 20 mg tablet 20 mg PO DAILY 01/23/2101/20 Hot Flash 1 tab PO TID 02/04/23 naproxen sodium 220 mg tablet 220 mg PO Q12H PRN Fever Or Pain 07/02/23 02/13/25 (Aleve) cetirizine 10 mg capsule 10 mg PO DAILY PRN allergies 01/24/25 02/13/25 fluticasone propionate 50 2 spray intranasal DAILY PRN 01/24/25 02/13/25 mcg/actuation nasal allergies spray,suspension (Allergy Relief (fluticasone)) meloxicam 15 mg tablet 15 mg PO DAILY 01/24/2501/20 levothyroxine 50 mcg tablet 50 mcg PO QAM 02/13/25 melatonin 10 mg sublingual tablet 10 mg sublingual LUISA LY PRN sleep 02/13/25 02/13/25 tiotropium bromide 2.5 2 puff inhalation DAILY 01/2002/13/25 mcg/actuation mist for inhalation (Spiriva Respimat) Previous Rx's ?Medication ?Instructions ?Recorded oxybutynin chloride 10 mg 10 mg PO DAILY #30 tabs 02/20 03/13 tablet,extended release 24 hr furosemide 20 mg tablet (Lasix) 20 mg PO DAILY PRN swe [place]ling #30 01/24/25 tabs doxycycline hyclate 100 mg capsule 100 mg PO BID 10 da ys #20 caps 02/13/25 ipratropium 0.5 mg-albuterol 3 mg 3 ml inhalation Q4H PRN shortness 02/13/25 (2.5 mg base)/3 mL nebulization of breath or wheezing #90 mL soln Allergies Allergy/AdvReac Type Severity Reaction Status Date / Time acetaminophen (From Percocet) Allergy Severe ALGY-Redness Verified 02/13/25 09:38 of Skin oxycodone (From Percocet) Allergy Severe ALGY-Redness Verified 02/13/25 09:38 of Skin budesonide (From Breztri Allergy Intermediate ADR-Itching Verified 02/13/25 09:38 Aerosphere) fluticasone furoate (From Allergy Intermediate ADR-Itching Verified 02/13/25 09:38 Trelegy Ellipta) formoterol (From Breztri Allergy Intermediate ADR-Itching Verified 02/13/25 09:38 Aerosphere) glycopyrrolate (From Breztri Allergy Intermediate ADR-Itching Verified 02/13/25 09:38 Aerosphere) umeclidinium (From Trelegy Allergy Intermediate ADR-Itching Verified 02/13/25 09:38 Ellipta) vilanterol (From Trelegy Allergy Intermediate ADR-Itching Verified 02/13/25 09:38 Ellipta) amlodipine Allergy Unknown Unknown Verified 02/13/25 09:38 benazepril Allergy Unknown Unknown Verified 02/13/25 09:38 loratadine Allergy Unknown Unknown Verified 02/13/25 09:38 prednisone Allergy Unknown Unknown Verified 02/13/25 09:38 loracarbef (From Lorabid) Allergy Unknown Verified 02/13/25 09:38 Review of Systems 2 Const: Denies: fever(s) or chills Card: Denies: chest pain Resp: Reports: dyspnea, non-productive cough, wheezing and chest congestion GI: Denies: abdominal pain : Denies: dysuria, urinary frequency or urinary urgency Musc: Denies: neck pain or back pain Skin/Breast: Denies: rash PFSH ED 2 PFSH: Medical History Cataract Lower extremity edema GERD (gastroesophageal reflux disease) Vulvovaginal candidiasis Tobacco abuse Dyslipidemia Hypothyroidism PAD (peripheral artery disease) COPD (chronic obstructive pulmonary disease) Myocardial infarction ASHD (arteriosclerotic heart disease) Surgical History S/P hysterectomy S/P bladder repair S/P cholecystectomy S/P hernia repair Status post tubal ligation S/P lumpectomy of breast S/P knee replacement RIGHT S/P angioplasty with stent Family History Father CAD (coronary artery disease) Myocardial infarction Grandfather CAD (coronary artery disease) PATERNAL Myocardial infarction Grandmother CAD (coronary artery disease) PATERNAL Myocardial infarction Cancer Maternal--gallbladder cancer Brother Diabetes Denies family history of Ovarian cyst Hyperlipidemia Chronic kidney disease (CKD) Anesthesia complication Hypertension Thyroid disease Social History Smoking and tobacco/nicotine status: former use of tobacco/nicotine Alcohol intake: current Alcohol intake frequency: holidays/special occasions only Substance/Drug Use: never Household members: spouse Marital status: Current occupational status: employed Current occupation: ADJUNCT HISTORY INSTRUCTOR Current gender identity: Female Physical Exam 2 Const: ORIENTATION/CONSCIOUSNESS: Yes awake, Yes oriented to person, Yes oriented to place and Yes oriented to time HENMT: COMMON NORMALS: normocephalic, atraumatic and hearing grossly normal bilaterally HEAD & SCALP: normocephalic and atraumatic Resp: EFFORT & INSPECTION: Yes tachypneic AUSCULTATION: wheezes Cardio: COMMON NORMALS: regular rate, regular rhythm and No murmurs present (Cardio) RATE: regular rate RHYTHM: regular rhythm GI: COMMON NORMALS: Soft to palpation and No hepatosplenomegaly present A USCULTATION: Yes normoactive bowel sounds PALPATION: Yes Soft to palpation, No Tenderness to palpation present (GI), No Guarding due to palpation present (GI) and Yes No hepatosplenomegaly present Extremity: COMMON NORMALS: normal to inspection, capillary refill normal, no clubbing, cyanosis or edema, no calf tenderness and no pedal edema Neuro: SENSORIUM/ORIENTATION: Yes oriented to person, Yes oriented to place and Yes oriented to time Skin: COMMON NORMALS: no rashes or lesions noted GENERAL SKIN EXAM: no rashes or lesions noted Course 2 Vital Signs: Vital signs: Vital Signs Temperature 98.1 F 02/13/25 09:27 Pulse Rate 100 02/13/25 13:10 Respiratory Rate 16 02/13/25 13:10 Blood Pressure 150/67 02/13/25 13:10 Pulse Oximetry 93 02/13/25 13:10 Oxygen Delivery Me thod Room Air 02/13/25 13:07 Oxygen Flow Rate 1.5 02/13/25 11:03 MDM - SOB/Dyspnea Medical Decision Making Much improved after DuoNeb and IV steroid. Patient states she cannot take oral steroid. Will discharge her home she is feeling much better lung congestion improved significantly air movement is better I will send her home on DuoNebs to use every 6 hours as needed start doxycycline if worsens return to the emergency room. Otherwise follow-up with her primary care doctor within the next week. Lab Data 02/13/25 10:06 02/13/25 10:06 Labs/Radiology: Radiology Impressions Chest X-Ray 02/13/25 10:00 IMPRESSION: No acute cardiopulmonary abnormality. Laboratory Results WBC 6.78 10^3/uL (3.29-11.43) 02/13/25 10:06 RBC 3.67 10^6/uL (3.85-5.65) L 02/13/25 10:06 Hgb 10.50 g/dL (11.27-16.99) L 02/13/25 10:06 Hct 33.5 % (36-47) L 02/13/25 10:06 MCV 91.3 fl (85-98) 02/13/25 10:06 MCH 28.6 pg (27-33) 02/13/25 10:06 MCHC 31.3 g/dL (30-55) 02/13/25 10:06 RDW 17.0 % (12.1-15.1) H 02/13/25 10:06 Plt Count 334 10^3/cmm (157-399) 02/13/25 10:06 MPV 9.5 fL (7.4-10.4) 02/13/25 10:06 Neut % (Auto) 64.5 % 02/13/25 10:06 Lymph % (Auto) 22.1 % 02/13/25 10:06 [place] % (Auto) 5.9 % 02/13/25 10:06 Eos % (Auto) 6.5 % 02/13/25 10:06 Baso % (Auto) 0.9 % 02/13/25 10:06 Neut # (Auto) 4.37 10^3/uL (1.8-7.7) 02/13/25 10:06 Lymph # (Auto) 1.5 10^3/uL (0.8-4.8) 02/13/25 10:06 [place] # (Auto) 0.4 10^3/uL (0.2-0.9) 02/13/25 10:06 Eos # (Auto) 0.4 10^3/uL (0.0-0.8) 02/13/25 10:06 Baso # (Auto) 0.1 10^3/uL (0.0-0.1) 02/13/25 10:06 Nucleated RBC % (auto) 0 % 02/13/25 10:06 Nucleated RBCs # 0.0 /100WBC 02/13/25 10:06 Specimen Type Arterial 02/13/25 10:17 Sample Site Radial, right 02/13/25 10:17 ABG pH 7.46 (7.35-7.45) H 02/13/25 10:17 ABG pCO2 43.0 mmHg (35-45) 02/13/25 10:17 ABG pO2 72.3 mmHg (80.0-100.0) L 02/13/25 10:17 ABG PO2/FiO2 Ratio 344 02/13/25 10:17 ABG HCO3 30.2 mmol/L (22-26) H 02/13/25 10:17 ABG O2 Saturation 95.4 02/13/25 10:17 ABG Base Excess 5.6 mmol/L (-2.0-2.0) H 02/13/25 10:17 [place] Test Pos 02/13/25 10:17 A-a O2 Gradient 3.2 mmHg (5-10) L 02/13/25 10:17 Hematocrit 32.7 % (37-47) L 02/13/25 10:17 Hgb O2 Saturation 94.2 % (95-100) L 02/13/25 10:17 Carboxyhemoglobin 0.8 %THgb (0.4-20.1) 02/13/25 10:17 Methemoglobin 0.4 % (0.4-1.5) 02/13/25 10:17 Total Hemoglobin 10.7 g/dL (12-16) L 02/13/25 10:17 Sodium 142.0 mmol/L (131-143) 02/13/25 10:17 Potassium 3.6 mmol/L (3.5-5.0) 02/13/25 10:17 Glucose 103.0 mg/dL (70-115) 02/13/25 10:17 Ionized Calcium 1.2 mmol/L (1.1-1.4) 02/13/25 10:17 O2 Delivery Device Room air 02/13/25 10:17 FiO2 21.0 % 02/13/25 10:17 Computer Discovery Teacher ID [place] 02/13/25 10:17 Sodium 141 mmol/L (136-145) 02/13/25 10:06 Potassium 4.1 mmol/L (3.5-5.1) 02/13/25 10:06 Chloride 100 mmol/L (98-107) 02/13/25 10:06 Carbon Dioxide 27 mmol/L (22-29) 02/13/25 10:06 Anion Gap 18.1 (5-19) 02/13/25 10:06 BUN 18 mg/dL (8-23) 02/13/25 10:06 Creatinine 1.2 mg/dL (0.5-0.9) H 02/13/25 10:06 GFR Calculation Not Reportable 02/13/25 10:06 Glucose 97 mg/dL (65-115) 02/13/25 10:06 Calculated Osmolality 294 mOsm/kg (285-295) 02/13/25 10:06 Calcium 9.0 mg/dL (8.5-10.5) 02/13/25 10:06 Total Bilirubin 0.3 mg/dL (0.15-1.2) 02/13/25 10:06 AST 21 U/L (0-32) 02/13/25 10:06 ALT 13 U/L (0-33) 02/13/25 10:06 Alkaline Phosphatase 131 U/L (35-105) H 02/13/25 10:06 Troponin T Baseline 32 ng/L (0-10) H 02/13/25 10:06 Troponin T 120 Minute 28.11 ng/L (0-10) H 02/13/25 11:25 Delta Troponin T -3.89 ABS# (0-10) L 02/13/25 11:25 C-Reactive Protein 3.0 mg/L (0.0-4.9) 02/13/25 10:06 NT-Pro-B Natriuret Pep 145 pg/mL (0-450) 02/13/25 10:06 Total Protein 7.0 g/dL (6.6-8.7) 02/13/25 10:06 Albumin 3.7 g/dL (3.5-5.2) 02/13/25 10:06 Globulin 3.3 g/dL (1.3-4.6) 02/13/25 10:06 All radiology interpretation(s) finalized by discharge Discharge Plan Discharge Patient Disposition: Home Clinical Impression: Acute exacerbation of chronic obstructive airways disease Condition: Stable Prescriptions: New doxycycline hyclate 100 mg capsule 100 mg PO BID 10 Days Qty: 20 0RF ipratropium-albuterol 0.5 mg-3 mg(2.5 mg base)/3 mL solution for nebulization 3 ml inhalation Q4H PRN (Reason: shortness of breath or wheezing) Qty: 90 0RF No Action feverfew 100 mg capsule 100 mg PO DAILY PRN (Reason: Fever Or Pain) aspirin [Adult Low Dose Aspirin] 81 mg tablet,delayed release (DR/EC) 81 mg PO DAILY albuterol sulfate 2.5 mg /3 mL (0.083 %) solution for nebulization 2.5 mg INHALATION Q4H PRN (Reason: copd) atorvastatin 20 mg tablet 20 mg PO DAILY Hot Flash 1 tab PO TID naproxen sodium [Aleve] 220 mg tablet 220 mg PO Q12H PRN (Reason: Fever Or Pain) meloxicam 15 mg tablet 15 mg PO DAILY fluticasone propionate [Allergy Relief (fluticasone)] 50 mcg/actuation spray,suspension 2 spray intranasal DAILY PRN (Reason: allergies) Rx Instructions: administer into each nostril cetirizine 10 mg capsule 10 mg PO DAILY PRN (Reason: allergies) furosemide [Lasix] 20 mg tablet 20 mg PO DAILY PRN (Reason: swelling) Qty: 30 3RF oxybutynin chloride 10 mg tablet extended release 24hr 10 mg PO DAILY Qty: 30 6RF omeprazole 40 mg Capsule,Delayed Release(Dr/Ec) 40 mg PO DAILY losartan-hydrochlorothiazide 100-25 mg Tablet 1 tab PO DAILY Spiriva Respimat 2.5 mcg/actuation mist 2 puff INHALATION DAILY levothyroxine 50 mcg tablet 50 mcg PO QAM melatonin 10 mg Tablet, Sublingual 10 mg SUBLINGUAL DAILY PRN (Reason: sleep) Discharge Orders: Discharge ED (Routine); Ordered 02/13/25 Ordered By: Adair Martinez Referrals: Jaison Guan DO [Primary Care Provider, Family Practice] Discharge Diet: Usual diet Discharge Activity: Increase activity as tolerated Patient Instructions: Opioid Safety, Pain Management Activity Restrictions/Additional Instructions: Thank you for choosing [facility] for your healthcare needs today. It is very important that you follow up as instructed or that you return to the Emergency Department should you have concerns or if your condition changes or worsens in any way. You are seen emergency room chronic shortness of breath that your symptoms are improved with IV steroids and nebulizers. He would related that you cannot tolerate oral steroids. We started on doxycycline 100 mg twice a day for 10 days also gave you ipratropium albuterol nebulizers to use every 4 hours as needed follow-up with your doctor in the next 3 to 4 days return if you have further problems. Print Language: Azerbaijani Coding Level of Care Code ED Vegetable Specker for Darryl Mahoney
[2025-02-13 11:13] LABS: NT Pro B Type Natriuretic Pept 145 pg/mL (0-450)
[2025-02-13 11:56] LABS: Troponin 5 2HR 28.11 ng/L (0-10)
[2025-02-13 11:57] LABS: Troponin 5 2HR Delta -3.89 ABS# (0-10)
== END 2025-02-13 13:17 | disposition home or self-care (01) ==
PROVIDERS: Emergency Provider Family Medicine; PCP Electrodiagnostic Medicine
DX: J44.1 Chronic obstructive pulmonary disease with (acute) exacerbation (principal)
CPT/HCPCS: 36415; 36600; 71045; 80051; 80053; 82330; 82805; 83880; 84484; 85025; 86140; 93005; 94640; 96374; 99285; J2919; J7613; J9999

== ENCOUNTER → 2025-04-24 09:38 | Outpatient (BNVA) | payer MEDICARE, OTHER, SELFPAY | PROVIDERS: PCP Electrodiagnostic Medicine; Visit Provider Nurse Practitioner Family | DX: L82.1 Other seborrheic keratosis (principal); L81.4 Other melanin hyperpigmentation; L60.1 Onycholysis; L57.8 Other skin changes due to chronic exposure to nonionizing radiation; L57.0 Actinic keratosis | CPT/HCPCS: 17000; 99213 ==

== ENCOUNTER → 2025-07-04 08:31 | Outpatient (BNVA) | payer MEDICARE, OTHER, SELFPAY | PROVIDERS: PCP Electrodiagnostic Medicine; Visit Provider Internal Medicine | DX: J44.89 Other specified chronic obstructive pulmonary disease (principal); J30.2 Other seasonal allergic rhinitis; R91.8 Other nonspecific abnormal finding of lung field; Z87.891 Personal history of nicotine dependence; J44.9 Chronic obstructive pulmonary disease, unspecified; T78.40XA Allergy, unspecified, initial encounter; X58.XXXA Exposure to other specified factors, initial encounter | CPT/HCPCS: 36415; 82103; 85025; 86003; 99204; Q3014 ==

== ENCOUNTER 2025-07-11 09:23 | Outpatient (CLI) | payer MEDICARE, OTHER, SELFPAY ==
--- NOTE | 2025-07-11 09:30 | CTR_ITS ---
PROCEDURE INFORMATION: Exam: CT Chest With Contrast; Diagnostic Exam date and time: 07/11/2025 9:43 AM Age: 80 years old Clinical indication: Condition or disease; Lung condition and disease; Pulmonary nodule, solitary; Prior surgery; Surgery date: 6+ months; Surgery type: Left breast lumpectomy, heart stents; Additional info: Lunf nodules TECHNIQUE: Imaging protocol: Diagnostic computed tomography of the chest with contrast. Radiation optimization: All CT scans at this facility use at least one of these dose optimization techniques: automated exposure control; mA and/or kV adjustment per patient size (includes targeted exams where dose is matched to clinical indication); or iterative reconstruction. Contrast material: OMNI 350; Contrast volume: 100 ml; Contrast route: INTRAVENOUS (IV); COMPARISON: CR (CHEST, ) 06/26/2025 12:51 AM RADIATION DOSE METRICS: Total DLP (mGy-cm): 261.23 FINDINGS: Lungs: Mild biapical pleuroparenchymal scarring. No infiltrates or lobar consolidation. No suspiciuos pulmonary nodules or masses. Few scattered calcified granulomas in both lungs. Pleural spaces: No pleural effusions or pneumothorax. Focal area of calcified pleural plaque in the posterior aspect of the right lung. Heart: Heart size within normal limits. No pericardial effusions. Coronary arteries: Extensive atherosclerotic coronary artery calcifications. Lymph nodes: No significant mediastinal or hilar lymphadenopathy. Extensive calcified mediastinal and hilar lymph nodes. Vasculature: Diffuse atherosclerotic calcifications of the thoracic aorta. No aneurysm or dissection. Liver: Calcified granulomas in the liver and spleen. Gallbladder and biliary ducts: Surgically absent gallbladder. Bones/joints: No significant focal osseous lesions. No fractures or malalignment. Soft tissues: Unremarkable. CT/CT chest w con* [id number] IMPRESSION: 1. No acute findings in the chest. 2. No suspicious masses or nodules. 3. Findings consistent with sequelae of old granulomatous disease including scattered calcified granulomas in the lungs and numerous calcified granulomas in the liver and spleen. 4. Focal area of calcified pleural plaque in the posterior aspect of the right lung. 5. Extensive atherosclerotic plaquing of the thoracic aorta and coronary arteries.
[2025-07-11] MEDS: iohexol 350 mg/mL 500 mL Btl (per mL) IV (09:51)
== END 2025-07-11 09:24 | disposition home or self-care (01) ==
LOC: RAD 09:26
PROVIDERS: PCP Electrodiagnostic Medicine; Visit Provider Internal Medicine
DX: J44.9 Chronic obstructive pulmonary disease, unspecified (principal); Z90.12 Acquired absence of left breast and nipple; Z95.5 Presence of coronary angioplasty implant and graft; R91.8 Other nonspecific abnormal finding of lung field; J84.10 Pulmonary fibrosis, unspecified; J92.9 Pleural plaque without asbestos; I25.84 Coronary atherosclerosis due to calcified coronary lesion; R59.0 Localized enlarged lymph nodes; I70.0 Atherosclerosis of aorta; K75.3 Granulomatous hepatitis, not elsewhere classified; D73.89 Other diseases of spleen; Z90.49 Acquired absence of other specified parts of digestive tract
CPT/HCPCS: 71260

== ENCOUNTER → 2025-07-18 12:48 | Outpatient (BNVA) | payer MEDICARE, OTHER, SELFPAY | PROVIDERS: PCP Electrodiagnostic Medicine; Visit Provider Internal Medicine | DX: J44.89 Other specified chronic obstructive pulmonary disease (principal); R91.8 Other nonspecific abnormal finding of lung field; B44.89 Other forms of aspergillosis; Z87.891 Personal history of nicotine dependence | CPT/HCPCS: 99214; Q3014 ==

== ENCOUNTER 2025-07-20 14:10 | Outpatient (CLI) | payer MEDICARE, OTHER, SELFPAY ==
--- NOTE | 2025-07-20 15:06 | US_ITS ---
WS: [id number] Limited abdomen ultrasound. HISTORY: LEFT inguinal hernia. Ultrasound directed to the LEFT inguinal region. 2 lymph nodes are identified. 1 of these lymph nodes has an asymmetrically thickened cortex measuring up to 4 mm. Slight displacement of the fatty hilum. No increased vascularity. The additional lymph node is normal. US/US abdomen complete* [id number] IMPRESSION: Single lymph node in the LEFT groin is very mildly abnormal. This may be reacti ve enlargement. If lymph node continues to increase in size CT evaluation may b e necessary. Favor this is probably benign reactive lymph node.
== END 2025-07-20 14:11 | disposition home or self-care (01) ==
LOC: RADOUTREAD 14:15
PROVIDERS: PCP Electrodiagnostic Medicine; Visit Provider Electrodiagnostic Medicine
DX: I48.0 Paroxysmal atrial fibrillation (principal); Z79.01 Long term (current) use of anticoagulants; E78.5 Hyperlipidemia, unspecified; I25.10 Atherosclerotic heart disease of native coronary artery without angina pectoris; I42.9 Cardiomyopathy, unspecified; I11.0 Hypertensive heart disease with heart failure; I50.20 Unspecified systolic (congestive) heart failure; Z95.5 Presence of coronary angioplasty implant and graft; Z87.891 Personal history of nicotine dependence; I25.2 Old myocardial infarction; I48.91 Unspecified atrial fibrillation; R06.02 Shortness of breath; I25.118 Atherosclerotic heart disease of native coronary artery with other forms of angina pectoris
CPT/HCPCS: 93005; 99214

== ENCOUNTER 2025-08-10 08:58 | Outpatient (CLI) | payer MEDICARE, OTHER, SELFPAY ==
--- NOTE | 2025-08-10 09:15 | USCV_ITS ---
Bethany Hinton Age: 80 Gender: F : 1945 Exam Date: 08/10/2025 09:14 Ordering Phys: Fabian Gore MD ([email or web address]) Technologist: JAE Exam Location: [facility] – [place] Indication: CHF BP: 118 / 66 HR: Rhythm: Sinus Technical Quality: Adequate MEASUREMENTS (Male / Female) Normal Values 2D ECHO LV Diastolic Diameter PLAX 4.8 cm 4.2 - 5.9 / 3.9 - 5.3 cm IVS Diastolic Thickness 0.7 cm 0.6 - 1.0 / 0.6 - 0.9 cm IVS Systolic Thickness 0.8 cm LVPW Diastolic Thickness 0.7 cm 0.6 - 1.0 / 0.6 - 0.9 cm LVPW Systolic Thickness 0.9 cm LVOT Diameter 1.9 cm LV Ejection Fraction 2D Teich 34.5 % LV Ejection Fraction MOD 4C 53.9 % LV Ejection Fraction MOD 2C 55.4 % LV Ejection Fraction 2C AL 60.4 % LA Diameter 3.2 cm RA Systolic Volume 4C AL 42.6 ml RA Systolic Volume 4C MOD 42.3 ml LA Sys Volume AL 55.1 cm cubed LA Sys Volume Index AL 32.6 cm cubed/m squared Aorta at Sinotubular Diameter 2.7 cm IVC Diameter 2.2 cm M-MODE LA Ao Ratio MM 1.1 AV Cusp Separation MM 1.2 cm FINDINGS Left Ventricle Normal left ventricular size, systolic function and wall thickness, with no regional wall motion abnormalities. Left ventricular ejection fraction is 55%. Right Ventricle Right Atrium Left Atrium IA Septum Mitral Valve Aortic Valve Tricuspid Valve Pulmonic Valve Pericardium Aorta IVC CONCLUSIONS Normal left ventricular size, systolic function and wall thickness, with no regional wall motion abnormalities. Left ventricular ejection fraction is 55%. Fabian Gore MD, FACC (Electronically Signed) Final Date: 15 August 2025 19:01 S
== END 2025-08-10 08:59 | disposition home or self-care (01) ==
LOC: RAD 08:59
PROVIDERS: PCP Electrodiagnostic Medicine; Visit Provider Internal Medicine Cardiovascular Disease
DX: R06.02 Shortness of breath (principal); I25.10 Atherosclerotic heart disease of native coronary artery without angina pectoris; I50.9 Heart failure, unspecified
CPT/HCPCS: 93308

== ENCOUNTER 2025-08-11 12:07 | Outpatient (CLI) | payer MEDICARE, OTHER, SELFPAY ==
[2025-08-11 13:21] LABS: Anion Gap 14.0 (5-19); Blood Urea Nitrogen 22 mg/dL (8-23); Calcium 8.6 mg/dL (8.5-10.5); Carbon Dioxide 29 mmol/L (22-29); Chloride 102 mmol/L (98-107); Glucose 91 mg/dL (65-115); NT Pro B Type Natriuretic Pept 583 pg/mL (0-450); Osmolality Calculated 295 mOsm/kg (285-295); Potassium 4.0 mmol/L (3.5-5.1); Sodium 141 mmol/L (136-145)
[2025-08-14 15:58] LABS: Aspergillus AG,EIA,Serum NOT DETECTED; Aspergillus Galactomannan Inde <0.50
== END 2025-08-11 12:08 | disposition home or self-care (01) ==
LOC: LAB 12:07
PROVIDERS: Internal Medicine; PCP Electrodiagnostic Medicine; Visit Provider Internal Medicine Cardiovascular Disease
DX: B44.81 Allergic bronchopulmonary aspergillosis (principal); R06.02 Shortness of breath; I25.118 Atherosclerotic heart disease of native coronary artery with other forms of angina pectoris
CPT/HCPCS: 36415; 80048; 83880; 87305

== ENCOUNTER → 2025-08-15 14:37 | Outpatient (BNVA) | payer MEDICARE, OTHER, SELFPAY | PROVIDERS: PCP Electrodiagnostic Medicine; Visit Provider Internal Medicine Cardiovascular Disease | DX: I48.0 Paroxysmal atrial fibrillation (principal); Z79.01 Long term (current) use of anticoagulants; E78.5 Hyperlipidemia, unspecified; I25.10 Atherosclerotic heart disease of native coronary artery without angina pectoris; I42.9 Cardiomyopathy, unspecified; I11.0 Hypertensive heart disease with heart failure; I50.20 Unspecified systolic (congestive) heart failure; Z95.5 Presence of coronary angioplasty implant and graft; Z87.891 Personal history of nicotine dependence; I25.2 Old myocardial infarction | CPT/HCPCS: 99214 ==